=== PATIENT | female | born 1980 | race Caucasian/White ===

== ENCOUNTER 2017-02-14 21:16 | Emergency (ER) | payer OTHER ==
[2017-05-05] MEDS ORDERED: ZANTAC150 MG PO (06:28)
[2017-05-05] MEDS ORDERED: CLARITIN 10MG T10 MG PO (06:30)
[2017-05-05] MEDS ORDERED: JARDIANCE10 MG PO (06:30)
[2017-05-05] MEDS ORDERED: COZAAR50 MG PO (06:31)
[2017-05-05] MEDS ORDERED: FORTAMET1000 MG PO (06:31)
[2017-05-05] MEDS ORDERED: ZOFRAN8 MG PO (06:32)
[2017-05-05] MEDS ORDERED: IBUPROFEN400 MG PO (06:32)
[2017-05-05] MEDS ORDERED: BAYER CHEWABLE81 MG PO (11:49)
[2017-05-05] MEDS ORDERED: DOCUSATE SODIU250 MG PO (11:51)
[2017-05-05] MEDS ORDERED: ZOFRAN4 MG PO (11:51)
[2017-05-05] MEDS ORDERED: PERCOCET 5-3251 EACH PO (11:52)
== END 2017-02-15 00:47 | disposition home or self-care (01) ==
LOC: ER1 21:16
DX: M25.562 Pain in left knee (principal); G89.29 Other chronic pain; E11.9 Type 2 diabetes mellitus without complications
CPT/HCPCS: 29505; 73564; 96372; 99283; J1885

== ENCOUNTER → 2017-02-28 | Outpatient (CLI) | payer OTHER ==
[~2017-02-28] MED LIST: BAYER CHEWABLE81 MG PO; CLARITIN 10MG T10 MG PO; COZAAR50 MG PO; DOCUSATE SODIU250 MG PO; FORTAMET1000 MG PO; IBUPROFEN400 MG PO; JARDIANCE10 MG PO; PERCOCET 5-3251 EACH PO; ZANTAC150 MG PO; ZOFRAN4 MG PO; ZOFRAN8 MG PO
== END ==
LOC: KOH-I 14:09
DX: S83.512A Sprain of anterior cruciate ligament of left knee, initial encounter (principal); S83.422A Sprain of lateral collateral ligament of left knee, initial encounter
CPT/HCPCS: 73721

== ENCOUNTER → 2017-03-25 | Outpatient (CLI) | payer OTHER ==
[2017-03-25 11:04] LABS: BUN/CREATININE RATIO 18 (0-10)
== END ==
LOC: OPSV2 10:09
PROVIDERS: Orthopaedic Surgery
DX: Z01.812 Encounter for preprocedural laboratory examination (principal); S83.512A Sprain of anterior cruciate ligament of left knee, initial encounter
CPT/HCPCS: 36415; 80048; 83036

== ENCOUNTER 2021-12-18 17:51 | Emergency (ER) | payer OTHER ==
[2021-12-18 18:43] LABS: RED BLOOD COUNT 4.42 M/UL (4.00-5.10); WHITE BLOOD COUNT 7.3 K/UL (4.5-11.0)
[2021-12-18 19:02] LABS: BUN/CREATININE RATIO 28 (0-10)
[2021-12-18] MEDS ORDERED: PROVENTIL HFA6.7 GM INH (19:34)
[2021-12-18] MEDS ORDERED: PREDNISONE 20 M20 MG PO (19:34)
== END 2021-12-18 19:32 | disposition home or self-care (01) ==
LOC: ER1 17:51
PROVIDERS: Emergency Medicine
DX: J11.1 Influenza due to unidentified influenza virus with other respiratory manifestations (principal); R05.9 Cough, unspecified; E11.9 Type 2 diabetes mellitus without complications; Z88.0 Allergy status to penicillin
CPT/HCPCS: 71045; 80053; 81001; 85025; 94664; 99283; J7030

== ENCOUNTER 2022-01-10 11:49 | Emergency (ER) | payer OTHER ==
[~2022-01-10 11:49] MED LIST changes: +PREDNISONE 20 M20 MG PO; +PROVENTIL HFA6.7 GM INH
[2022-01-10] MEDS ORDERED: IBU600 MG PO (14:03)
== END 2022-01-10 14:29 | disposition home or self-care (01) ==
LOC: ER1 11:49
DX: S76.012A Strain of muscle, fascia and tendon of left hip, initial encounter (principal); S86.912A Strain of unspecified muscle(s) and tendon(s) at lower leg level, left leg, initial encounter; W19.XXXA Unspecified fall, initial encounter; Y92.009 Unspecified place in unspecified non-institutional (private) residence as the place of occurrence of the external cause
CPT/HCPCS: 73502; 73564; 99283